=== PATIENT | female | born 1950 | race Caucasian/White ===

== ENCOUNTER 2019-10-06 11:47 | Outpatient (CLI) | payer OTHER | END 2019-10-06 11:51 | disposition home or self-care (01) | LOC: LAB 11:47 | DX: N20.0 Calculus of kidney (principal) ==

== ENCOUNTER 2019-10-08 07:39 | Outpatient (CLI) | payer OTHER | END 2019-10-08 07:47 | disposition home or self-care (01) | LOC: TOM 07:39 | DX: R10.32 Left lower quadrant pain (principal) | CPT/HCPCS: 74174; Q9965 ==